=== PATIENT | male | born 1945 | race Caucasian/White ===

== ENCOUNTER 2024-08-22 12:22 | Inpatient (IN) ==
[2024-08-22] MEDS: 0.9 % SODIUM CHLORIDE 1,000 ML IV ONE (12:49)
[2024-08-22 13:51] LABS: Basophils # (Auto) 0.02 K/mcL (0.00-0.30); Basophils % (Auto) 0.2 % (0.0-2.0); Eosinophils # (Auto) 0.01 K/mcL (0.00-0.70); Eosinophils % (Auto) 0.1 % (0.0-7.0); Hematocrit 45.4 % (40.1-51.0); Hemoglobin 15.4 g/dL (13.7-17.5); Lymphocytes # (Auto) 0.67 K/mcL (1.50-4.80); Lymphocytes % (Auto) 5.6 % (15.5-49.0); Mean Corpuscular HGB Conc 33.9 g/dL (31.0-36.0); Mean Platelet Volume 9.3 fL (8.8-12.5); Monocytes # (Auto) 0.47 K/mcL (0.10-0.90); Monocytes % (Auto) 3.9 % (1.0-12.0); Platelet Count 184 K/mcL (140-440); RBC 4.73 M/mcL (4.63-6.08)
[2024-08-22 13:58] LABS: Creatine Kinase 101 U/L (24-195)
[2024-08-22 13:59] LABS: ALT/SGPT 27 U/L (<40); AST/SGOT 34 U/L (<40); Albumin 4.1 gm/dL (3.2-5.2); Albumin/Globulin Ratio 1.4 (1.0-2.3); Alkaline Phosphatase 145 U/L (39-117); Bilirubin,Total 0.8 mg/dL (0.1-1.0); Blood Urea Nitrogen 12 mg/dL (8-23); Calcium 9.8 mg/dL (8.6-10.4); Carbon Dioxide 20 mmol/L (22-30); Chloride 91 mmol/L (96-108); Globulin 2.9 gm/dL (2.2-3.7); Glomerular Filtration Rate 103; Glucose 114 mg/dL (70-105); Sodium 128 mmol/L (133-145)
[2024-08-22] MEDS: HYDROmorphone 0.5 MG/0.5 ML SYRINGE IV ONE ×2 (14:58→16:28)
[2024-08-22] MEDS: traMADol 50 MG TABLET PO ONE (14:59)
[2024-08-22 17:25] LABS: Appearance,Urine Clear (Clear); Bacteria,Urine Rare /hpf ({null, 0}); Bilirubin,Urine Negative (Negative); Color,Urine Yellow; Glucose,Urine (UA) Negative (Negative); Ketones,Urine 40 mg/dL (Negative); Leukocyte Esterase,Urine Trace /uL (Negative); Nitrate,Urine Negative (Negative); Protein,Urine Trace mg/dL (Negative); Specific Gravity,Urine 1.015 (1.000-1.035); Sperm,Urine Present /hpf (Absent); Urine Blood Large ery/mcL (Negative); Urine RBC 12 /hpf (0-3); Urine Squamous Epithelial Cell 2 /hpf (0-4); Urine WBC 2 /hpf (0-4); Urobilinogen,Urine Normal
[2024-08-22] MEDS ORDERED: MAGNESIUM HYDROXIDE 30 ML ORAL.SUSP PO PRN (20:12)
[2024-08-22] MEDS ORDERED: morphine 4 MG/ML VIAL IV PRN (20:12)
[2024-08-22] MEDS ORDERED: ONDANSETRON 4 MG/2 ML VIAL IV PRN (20:12)
[2024-08-22] MEDS: 0.9 % SODIUM CHLORIDE 10 ML SYRINGE IV SCH (21:00)
[2024-08-22] MEDS: 0.9 % SODIUM CHLORIDE 1,000 ML IV SCH (21:00)
[2024-08-22] MEDS: DOCUSATE SODIUM 100 MG CAPSULE PO SCH (21:21)
[2024-08-22] MEDS: SENNOSIDES 1 TABLET PO SCH (21:22)
[2024-08-22] MEDS: ACETAMINOPHEN 325 MG TABLET PO PRN (23:02)
[2024-08-23] MEDS: oxyCODONE IR 5 MG TABLET PO PRN (04:23)
[2024-08-23 06:46] LABS: Basophils # (Auto) 0.03 K/mcL (0.00-0.30); Basophils % (Auto) 0.4 % (0.0-2.0); Eosinophils # (Auto) 0.06 K/mcL (0.00-0.70); Eosinophils % (Auto) 0.8 % (0.0-7.0); Hematocrit 41.3 % (40.1-51.0); Hemoglobin 14.5 g/dL (13.7-17.5); Lymphocytes # (Auto) 1.17 K/mcL (1.50-4.80); Lymphocytes % (Auto) 16.2 % (15.5-49.0); Mean Cell Volume 93.7 fL (80.0-100.0); Mean Corpuscular HGB Conc 35.1 g/dL (31.0-36.0); Mean Platelet Volume 9.6 fL (8.8-12.5); Monocytes # (Auto) 0.87 K/mcL (0.10-0.90); Monocytes % (Auto) 12.1 % (1.0-12.0); Neutrophils % (Auto) 70.4 % (38.0-78.0); Platelet Count 208 K/mcL (140-440); RBC 4.41 M/mcL (4.63-6.08); WBC 7.2 K/mcL (4.5-11.0)
[2024-08-23 06:53] LABS: ALT/SGPT 25 U/L (<40); AST/SGOT 38 U/L (<40); Albumin 3.8 gm/dL (3.2-5.2); Albumin/Globulin Ratio 1.6 (1.0-2.3); Alkaline Phosphatase 125 U/L (39-117); Bilirubin,Total 0.8 mg/dL (0.1-1.0); Blood Urea Nitrogen 11 mg/dL (8-23); Calcium 10.1 mg/dL (8.6-10.4); Carbon Dioxide 24 mmol/L (22-30); Chloride 100 mmol/L (96-108); Globulin 2.4 gm/dL (2.2-3.7); Glomerular Filtration Rate 96; Glucose 93 mg/dL (70-105); Potassium 3.7 mmol/L (3.3-5.1); Sodium 136 mmol/L (133-145)
[2024-08-23] MEDS: ENOXAPARIN 40 MG/0.4 ML SYRINGE SQ SCH (09:54)
[2024-08-23] MEDS ORDERED: MECLIZINE 25 MG TABLET PO PRN (10:43)
[2024-08-23] MEDS: FISH OIL 1,000 MG CAPSULE PO SCH (11:37)
[2024-08-23] MEDS: MULTIVIT,THER IRON,CA,FA & MIN 1 TABLET PO SCH (11:38)
[2024-08-23] MEDS: VITAMIN B COMPLEX 1 CAPSULE PO SCH (11:38)
[2024-08-23] MEDS: ASPIRIN 81 MG TAB.CHEW PO SCH (11:38)
[2024-08-23] MEDS: GLUCOSAMINE/CHONDROITIN SULF A 1 CAP CAPSULE PO SCH (15:46)
[2024-08-23] MEDS: CARBOXYMETHYLCELLULOSE SODIUM 1 EACH DROPER.GEL OU PRN (20:38)
[2024-08-24 06:37] LABS: ALT/SGPT 25 U/L (<40); AST/SGOT 40 U/L (<40); Albumin 3.9 gm/dL (3.2-5.2); Albumin/Globulin Ratio 1.6 (1.0-2.3); Alkaline Phosphatase 123 U/L (39-117); Bilirubin,Total 0.8 mg/dL (0.1-1.0); Blood Urea Nitrogen 11 mg/dL (8-23); Calcium 9.9 mg/dL (8.6-10.4); Carbon Dioxide 26 mmol/L (22-30); Chloride 100 mmol/L (96-108); Globulin 2.5 gm/dL (2.2-3.7); Glomerular Filtration Rate 96; Glucose 96 mg/dL (70-105); Potassium 3.6 mmol/L (3.3-5.1); Sodium 138 mmol/L (133-145)
[2024-08-24 06:45] LABS: Basophils # (Auto) 0.02 K/mcL (0.00-0.30); Basophils % (Auto) 0.3 % (0.0-2.0); Eosinophils # (Auto) 0.17 K/mcL (0.00-0.70); Eosinophils % (Auto) 2.2 % (0.0-7.0); Hemoglobin 14.6 g/dL (13.7-17.5); Lymphocytes # (Auto) 1.32 K/mcL (1.50-4.80); Lymphocytes % (Auto) 17.1 % (15.5-49.0); Mean Cell Volume 94.6 fL (80.0-100.0); Mean Corpuscular HGB Conc 34.8 g/dL (31.0-36.0); Mean Platelet Volume 9.5 fL (8.8-12.5); Monocytes % (Auto) 10.3 % (1.0-12.0); Platelet Count 205 K/mcL (140-440); RBC 4.44 M/mcL (4.63-6.08); Red Cell Distribution Width 12.1 % (11.5-14.5); WBC 7.7 K/mcL (4.5-11.0)
[2024-08-24] MEDS: LIDOCAINE 4% TOP PATCH TOPICAL SCH (10:15)
[2024-08-24] MEDS: PEPPERMINT OIL PO SCH (10:15)
[2024-08-24] MEDS: LACTOBACILLUS ACIDOPHILUS PO SCH (10:16)
[2024-08-24] MEDS: SIMETHICONE 180 MG PO PRN (10:16)
[2024-08-24] MEDS: LOSARTAN 50 MG TABLET PO SCH (10:17)
[2024-08-24] MEDS: GLUCOSAMINE/CHONDROITIN SULF A 1 CAP CAPSULE PO SCH (11:41)
[2024-08-25 07:25] LABS: Basophils # (Auto) 0.03 K/mcL (0.00-0.30); Basophils % (Auto) 0.4 % (0.0-2.0); Eosinophils # (Auto) 0.44 K/mcL (0.00-0.70); Eosinophils % (Auto) 5.7 % (0.0-7.0); Hematocrit 39.6 % (40.1-51.0); Hemoglobin 13.6 g/dL (13.7-17.5); Lymphocytes # (Auto) 1.73 K/mcL (1.50-4.80); Lymphocytes % (Auto) 22.3 % (15.5-49.0); Mean Corpuscular HGB Conc 34.3 g/dL (31.0-36.0); Mean Platelet Volume 9.9 fL (8.8-12.5); Monocytes # (Auto) 0.84 K/mcL (0.10-0.90); Monocytes % (Auto) 10.8 % (1.0-12.0); Neutrophils % (Auto) 60.7 % (38.0-78.0); Platelet Count 209 K/mcL (140-440); RBC 4.17 M/mcL (4.63-6.08); Red Cell Distribution Width 12.4 % (11.5-14.5); WBC 7.8 K/mcL (4.5-11.0)
[2024-08-25 07:57] LABS: Phosphorous 3.1 mg/dL (2.5-4.5)
[2024-08-25 08:04] LABS: ALT/SGPT 22 U/L (<40); AST/SGOT 29 U/L (<40); Albumin 3.5 gm/dL (3.2-5.2); Albumin/Globulin Ratio 1.6 (1.0-2.3); Alkaline Phosphatase 111 U/L (39-117); Bilirubin,Total 0.8 mg/dL (0.1-1.0); Blood Urea Nitrogen 16 mg/dL (8-23); Calcium 9.6 mg/dL (8.6-10.4); Carbon Dioxide 24 mmol/L (22-30); Chloride 101 mmol/L (96-108); Globulin 2.2 gm/dL (2.2-3.7); Glomerular Filtration Rate 103; Glucose 97 mg/dL (70-105); Potassium 3.6 mmol/L (3.3-5.1); Sodium 137 mmol/L (133-145)
[2024-08-26 06:44] LABS: Hematocrit 39.5 % (40.1-51.0); Hemoglobin 13.6 g/dL (13.7-17.5)
[2024-08-27 11:45] VITALS: TEMP 97.8; O2SAT 98
== END 2024-08-27 14:57 | DRG 552 ==
LOC: ED 12:22 → MEDSUR 20:10
PROVIDERS: ADMIT Student in an Organized Health Care Education/Training Program; ATTEND Student in an Organized Health Care Education/Training Program